=== PATIENT | female | born 1985 | race American Indian/Alaskan Native ===

== ENCOUNTER 2017-04-01 08:26 | Emergency (ER) | payer SELFPAY ==
[2017-04-01] MEDS ORDERED: ZOFRAN ODT ONE (08:58)
[2017-04-01] MEDS ORDERED: ZOFRAN ODT PO ONE (09:06)
[2017-04-01 09:41] LABS: Hematocrit 33.2 % (30.3-42.9); Hemoglobin 10.7 gm/dl (10.1-14.3); Mean Corpuscular HGB Conc 32 % (30-34); Mean Corpuscular Volume 75 fl (79-97); Platelet Count 302 K/mm3 (140-440); Red Blood Count 4.44 M/mm3 (3.65-5.03); White Blood Count 9.1 K/mm3 (4.5-11.0)
[2017-04-01 09:53] LABS: Mean Corpuscular Hemoglobin 24 pg (28-32); Red Cell Distribution Width 20.9 % (13.2-15.2)
[2017-04-01 09:56] LABS: Alanine Aminotransferase 12 units/L (7-56); Albumin 3.8 g/dL (3.9-5); Albumin/Globulin Ratio 1.4 %; Alkaline Phosphatase 56 units/L (35-129); Amylase 105 units/L (27-131); Anion Gap 17 mmol/L; Bilirubin,Total < 0.20 mg/dL (0.1-1.2); Blood Urea Nitrogen 6 mg/dL (7-17); Calcium 9.2 mg/dL (8.4-10.2); Carbon Dioxide 23 mmol/L (22-30); Chloride 101.9 mmol/L (98-107); Creatine Kinase 84 units/L (30-135); Glucose 101 mg/dL (65-100); Lipase 24 units/L (13-60); Potassium 4.5 mmol/L (3.6-5.0); Sodium 137 mmol/L (137-145); Total Protein 6.6 g/dL (6.3-8.2)
[2017-04-01 10:01] LABS: Bilirubin,Direct < 0.2 mg/dL (0-0.2)
--- NOTE | 2017-04-01 11:31 | Ultrasound Report ---
ULTRASOUND OB LESS THAN 14 WEEKS FETUS ULTRASOUND OB TRANSVAGINAL HISTORY: Abdominal and pelvic pain during . Beta hCG level [id number]. FINDINGS: Transabdominal and transvaginal ultrasound imaging was performed. The uterus measures 11.2 x 8.4 x 8.0 cm. An intrauterine gestational sac containing a small pole and yolk sac is identified. Zillah-rump length measures 25 mm which correlates with a 9 week, 2 day . Estimated due date is 11/02/17. Heart rate measured 171 beats per minute. The placenta appears to be forming anteriorly. A small subchorionic hemorrhage is suspected along the anterior border of the gestational sac measuring 1.4 x 0.5 cm. The right ovary measures 3.3 x 2.5 x 4.0 cm. A 1.6 cm complex cyst in the right ovary probably represents a corpus luteum cyst. The left ovary is unremarkable and measures 3.6 x 1.5 x 2.6 cm. IMPRESSION: Viable, single intrauterine as described. Right ovarian cyst. Small subchorionic hemorrhage.
--- NOTE | 2017-04-01 11:31 | Ultrasound Report ---
ULTRASOUND OB LESS THAN 14 WEEKS FETUS ULTRASOUND OB TRANSVAGINAL HISTORY: Abdominal and pelvic pain during . Beta hCG level [id number]. FINDINGS: Transabdominal and transvaginal ultrasound imaging was performed. The uterus measures 11.2 x 8.4 x 8.0 cm. An intrauterine gestational sac containing a small pole and yolk sac is identified. Counce-rump length measures 25 mm which correlates with a 9 week, 2 day . Estimated due date is 11/02/17. Heart rate measured 171 beats per minute. The placenta appears to be forming anteriorly. A small subchorionic hemorrhage is suspected along the anterior border of the gestational sac measuring 1.4 x 0.5 cm. The right ovary measures 3.3 x 2.5 x 4.0 cm. A 1.6 cm complex cyst in the right ovary probably represents a corpus luteum cyst. The left ovary is unremarkable and measures 3.6 x 1.5 x 2.6 cm. IMPRESSION: Viable, single intrauterine as described. Right ovarian cyst. Small subchorionic hemorrhage.
--- NOTE | 2017-04-01 13:03 | Emergency Department Report ---
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 she experienced a brief syncopal episode. denies injury. Reports that her LMP was in Jan. Denies care. reports some abdominal cramping. denies discharge or bleeding. Timing/Prior Episodes: single episode today Precipitating Factors: Positive: none Context: standing Loss of Consciousness: brief (seconds) Current Symptoms: back to normal - Related Data Allergies/Adverse Reactions: Allergies amoxicillin Allergy (Verified 04/01/17 08:49) Rash erythromycin ethylsuccinate [From Pediazole] Allergy (Verified 04/01/17 08:49) Rash sulfisoxazole acetyl [From Pediazole] Allergy (Verified 04/01/17 08:49) Rash Home Medications: Ambulatory Orders No Known Home Medications [No Reported Home Medications] 04/01/17 ED Review of Systems ROS: Stated complaint: PASSED OUT Other details as noted in HPI Other: GENERAL: No weight change, fatigue, weakness, fever, chills, or night sweats SKIN: No changes in skin or hair, no itching, no rashes, no jaundice HEAD: No trauma, headache, or visual changes EYES: No blurriness, tearing, itching, acute visual loss, conjunctival discoloration, or scleral icterus EARS: No hearing loss, tinnitus, vertigo, or earache NOSE: No rhinorrhea, stuffiness, sneezing, itching, or epistaxis MOUTH: No bleeding gums, hoarseness, sore throat, or swelling CARDIAC: No new murmur, chest pain, palpitations, dyspnea on exertion, orthopnea , PND, or edema RESPIRATORY: No shortness of breath, wheeze, cough, sputum production, hemoptysis, pneumonia, asthma, bronchitis, or emphysema GI: abdominal pain/cramping, nausea URINARY: No frequency, urgency, polyuria, dysuria, hematuria, or incontinence MUSCULOSKELETAL: No muscle weakness, joint stiffness, decrease in range of motion, redness, swelling, tenderness NEUROLOGIC: No loss of sensation, numbness, tingling, tremors, weakness, paralysis, seizures HEMATOLOGIC: No anemia, easy bruising, bleeding, petechiae, or purpura ENDOCRINE: No hot or cold intolerance, sweating, polyuria, polydipsia or, polyphagia no thyroid problems PSYCHIATRIC: No change in mood, no anxiety, no depression ED Past Medical Hx - Past Medical History Previous Medical History?: No - Surgical History Past Surgical History?: Yes Hx Appendectomy: Yes Additional Surgical History: tonsillectomy - Social History Smoking Status: Never Smoker Substance Use Type: None - Medications Home Medications: Home Medications Medication Instructions Recorded Confirmed Last Taken Type No Known Home Medications [No 04/01/17 04/01/17 Unknown History Reported Home Medications] ED Physical Exam - General Limitations: No Limitations - Other Other exam information: GENERAL: Patient in no acute distress HEAD: Normocephalic, atraumatic EYES: PERRLA, EOM intact, no scleral icterus, no papilledema, no conjunctival hemorrhage, visual levy and acuity wnl, NOSE: No tenderness, discharge, sinus tenderness MOUTH: No erythema, bleeding, exudate HEART: Regular rate and rhythm, no murmur, S1-S2 are auscultated, pulses are symmetric LUNGS: No wheezing, rales, rhonchi, bilateral breath sounds ABDOMEN: Normal bowel sounds, no tenderness, no rebound, no guarding, no masses , no CVA tenderness MUSCULOSKELETAL: Normal joint range of motion, no redness, no swelling, no tenderness NEUROLOGIC: GCS 15, Alert and Oriented x3, Cranial nerves intact, normal sensation, normal strength, normal gait, no cerebellar deficit PSYCHIATRIC: No homicidal or suicidal ideation, no anxiety, no depression, no hallucinations SKIN: Skin is warm and dry, no wounds, no rashes ED Course Vital Signs 04/01/17 08:49 Temperature 98.6 F Pulse Rate 114 H Respiratory 18 Rate Blood Pressure 147/94 O2 Sat by Pulse 100 Oximetry ED Medical Decision Making - Lab Data Result diagrams: 04/01/17 09:23 04/01/17 09:23 - EKG Data Interpretation: no acute changes - Radiology Data Radiology results: report reviewed - Medical Decision Making Charge nurse Janell reports chemistries normal per lab Na 137, K 4.5, Cl 101.9. Patient comfortable. Updated with results. Plan discharge with outpatient follow-up. Patient agrees with plan and will return if symptoms worsen. Critical care attestation.: If time is entered above; I have spent that time in minutes in the direct care of this critically ill patient, excluding procedure time. ED Disposition Clinical Impression: Abdominal pain affecting Syncope Qualifiers: Syncope type: unspecified Qualified Code(s): R55 - Syncope and collapse Disposition: DISCHARGED TO HOME OR SELFCARE Is pt being admited?: No Condition: Stable Instructions: Threatened Miscarriage (ED), Syncope (ED) Referrals: PRIMARY CARE, [Primary Care Provider] - 3-5 Days Forms: Work/School Release Form(ED) Time of Disposition: 14:00
[2017-04-01 13:41] LABS: Bacteria,Urine 1+ /HPF (Negative); Bilirubin,Urine NEG (Negative); Blood,Urine NEG (Negative); Ketones,Urine NEG (Negative); Mucus,Urine 2+ /HPF; Nitrite,Urine NEG (Negative); Protein,Urine <15 mg/dL mg/dL (Negative); Urobilinogen,Urine < 2.0 mg/dL (<2.0)
[2017-04-01 13:42] LABS: Leukocyte Esterase,Urine TR (Negative)
[2017-04-01 14:19] VITALS: BP 153/78
== END 2017-04-01 14:20 | disposition home or self-care (01) ==
LOC: ED 08:26
DX: O26.891 Other specified pregnancy related conditions, first trimester (principal); R55 Syncope and collapse; R10.9 Unspecified abdominal pain; Z88.1 Allergy status to other antibiotic agents; Z88.2 Allergy status to sulfonamides; Z3A.09 9 weeks gestation of pregnancy
CPT/HCPCS: 36415; 76801; 76817; 80048; 80074; 81001; 81025; 82150; 82550; 83690; 84484; 84702; 85027; 93005; 93010; Q0162

== ENCOUNTER 2017-04-20 11:33 | Emergency (ER) | payer MEDICAID ==
[2017-04-20 11:46] VITALS: BP 120/88
[2017-04-20 12:11] LABS: Hematocrit 32.6 % (30.3-42.9); Hemoglobin 10.5 gm/dl (10.1-14.3); Mean Corpuscular HGB Conc 32 % (30-34); Mean Corpuscular Volume 74 fl (79-97); Platelet Count 299 K/mm3 (140-440); Red Blood Count 4.39 M/mm3 (3.65-5.03); White Blood Count 12.4 K/mm3 (4.5-11.0)
[2017-04-20 12:16] LABS: Mean Corpuscular Hemoglobin 24 pg (28-32); Red Cell Distribution Width 20.3 % (13.2-15.2)
[2017-04-20 12:37] LABS: Anion Gap 19 mmol/L; Blood Urea Nitrogen 7 mg/dL (7-17); Calcium 9.1 mg/dL (8.4-10.2); Carbon Dioxide 21 mmol/L (22-30); Chloride 100.8 mmol/L (98-107); Glucose 153 mg/dL (65-100); Potassium 3.8 mmol/L (3.6-5.0); Sodium 137 mmol/L (137-145)
[2017-04-20 12:55] LABS: Blastocytes % (Manual) 0 %
[2017-04-20 12:56] LABS: Anisocytosis 1+; Basophils % (Manual) 0 % (0.0-1.8); Diff Status Complete; Elliptocytes Few; Eosinophils % (Manual) 0 % (0.0-4.3); Ovalocytes 1+; Polychromasia Rare; Target Cells Rare
== END 2017-04-20 19:30 | disposition left against medical advice (07) ==
LOC: ED 11:33
DX: R10.84 Generalized abdominal pain (principal); R11.10 Vomiting, unspecified; R19.7 Diarrhea, unspecified; Z53.21 Procedure and treatment not carried out due to patient leaving prior to being seen by health care provider
CPT/HCPCS: 36415; 80048; 85007; 85025

== ENCOUNTER 2017-09-11 20:52 | Outpatient (CLI) | payer MEDICAID ==
[2017-09-11 21:09] VITALS: BP 133/88
[2017-09-11] MEDS: LACTATED RINGERS 1,000 ML IV ONE (21:30)
[2017-09-11 21:47] LABS: Bacteria,Urine 2+ /HPF (Negative); Bilirubin,Urine NEG (Negative); Blood,Urine MOD (Negative); Ketones,Urine TR mg/dL (Negative); Leukocyte Esterase,Urine LG (Negative); Mucus,Urine FEW /HPF; Nitrite,Urine NEG (Negative)
[2017-09-11] MEDS: BRETHINE SUB-Q ONE (22:36)
== END 2017-09-11 23:45 | disposition home or self-care (01) ==
LOC: TRG 20:52
PROVIDERS: ATTEND Obstetrics & Gynecology
DX: O47.03 False labor before 37 completed weeks of gestation, third trimester (principal); Z87.891 Personal history of nicotine dependence; Z3A.32 32 weeks gestation of pregnancy
CPT/HCPCS: 81001; 96360; 96372; J3105; J7120

== ENCOUNTER 2017-10-13 03:05 | Inpatient (IN) | payer MEDICAID ==
[2017-10-13] MEDS ORDERED: XYLOCAINE 2% INFILTRATI ONE (03:30)
[2017-10-13] MEDS ORDERED: MINERAL OIL PO PRN (03:30)
[2017-10-13] MEDS ORDERED: BRETHINE IVP PRN (03:30)
[2017-10-13] MEDS ORDERED: SUBLIMAZE IV PRN (03:30)
[2017-10-13] MEDS ORDERED: BRETHINE SUB-Q PRN ×2 (03:30→03:59)
[2017-10-13] MEDS ORDERED: ePHEDrine SULFATE IV PRN ×3 (03:30→04:58)
[2017-10-13] MEDS ORDERED: LACTATED RINGERS 1,000 ML ONE (03:38)
[2017-10-13] MEDS ORDERED: CLEOCIN 900 MG/50 mL 900 MG/50 ML BAG IV ONE (03:40)
[2017-10-13 03:53] LABS: Hematocrit 25.9 % (30.3-42.9); Hemoglobin 8.3 gm/dl (10.1-14.3); Mean Corpuscular HGB Conc 32 % (30-34); Platelet Count 190 K/mm3 (140-440); Red Blood Count 3.75 M/mm3 (3.65-5.03); White Blood Count 9.7 K/mm3 (4.5-11.0)
[2017-10-13] MEDS ORDERED: MAGNESIUM SULFATE 4GM/100ML 4 GM/100 ML BAG IV ONE ×2 (03:54→03:56)
--- NOTE | 2017-10-13 03:54 | History and Physical Report ---
History of Present Illness Date of examination: 10/13/17 Date of admission: 10/13/17 03:18 Chief complaint: laboring History of present illness: EDC Confirmation: 11/02/2017 Past History : 4 Term Births: 3 Premature Births: 0 Living Children: 3 Para: 3 # 1 Delivery date: 1998 Weeks Gestation: term Delivery type: Anesthesia type: epidural Delivery location: [facility] Infant Sex: Male weight: 7-3 Comments: denies # 2 Delivery date: 2005 Weeks Gestation: term Delivery type: Delivery location: [facility] Sex: Female weight: 7-5 Comments: denies # 3 Delivery date: 2015 Weeks Gestation: term Delivery type: Anesthesia type: epidural Delivery location: [facility] Sex: Female weight: 5-9 Comments: denies Past Medical History: Negative Past Medical History Past Surgical History: Appendectomy Tonsillectomy Past Medical History 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 Infection History Hx of STD: none HIV Risk Eval: low risk Hepatitis B Risk Eval: low risk Personal hx. of genital herpes: no Partner hx. of genital herpes: no Rash, Viral, or Febrile illness since last LMP? no Varicella/Chicken Pox Status: Previous Disease TB Risk: no Genetic History Congenital Heart Defect: Mom: no Dad: no Alex Disease: Mom: no Dad: no Thalassemia Mom: no Dad: no Neural Tube Defect Mom: no Dad: no Down's Syndrome Mom: no Dad: yes Comments: sister Karan-Sachs Mom: no Dad: no Sickle Cell Disease/Trait Mom: no Dad: no Hemophilia Mom: no Dad: no Muscular Dystrophy Mom: no Dad: no Cystic Fibrosis Mom: no Dad: no Leodan Chorea Mom: no Dad: no Mental Retardation Mom: no Dad: no Fragile X Mom: no Dad: no Other Genetic/Chromosomal Disorder Mom: no Dad: no Child w/other defect Mom: no Dad: no Enviromental Exposures Xray Exposure: no Medication, drug, or alcohol use since LMP: no Chemical/Other Exposure: no Exposure to Cat Liter: no Hx of Parvovirus (Fifth Disease): no Occupational Exposure to Children: none Active Medications (reviewed today): None Current Allergies (reviewed today): No known allergies Past History Past Medical History: other (see HPI) [employer] History: chlamydia Family/Genetic History: other (see HPI) Social history: smoking - Obstetrical History Expected Date of Delivery: 11/02/17 Actual Gestation: 37 Week(s) 1 Day(s) : 4 Para: 3 Hx # Term Pregnancies: 3 Number of Pregnancies: 0 Spontaneous Abortions: 0 Induced : 0 Number of Living Children: 3 Medications and Allergies Allergies Allergy/AdvReac Type Severity Reaction Status Date / Time amoxicillin Allergy Rash Verified 04/01/17 08:49 erythromycin ethylsuccinate Allergy Rash Verified 04/01/17 08:49 [From Pediazole] sulfisoxazole acetyl Allergy Rash Verified 04/01/17 08:49 [From Pediazole] Home Medications Medication Instructions Recorded Confirmed Last Taken Type No Known Home Medications [No 09/11/17 10/13/17 Unknown History Reported Home Medications] Active Meds: Active Medications Fentanyl (Sublimaze) 100 mcg IV Q2H PRN PRN Reason: Labor Pain Clindamycin HCl (Cleocin 900 Mg/50 Ml) 900 mg in 50 mls @ 100 mls/hr IV Q8HR KYLAH PRN Reason: Protocol Lactated Ringer's (Lactated Ringers) 1,000 mls @ 125 mls/hr IV DIRECT KYLAH Oxytocin/Sodium Chloride (Pitocin/Ns 20 Unit/1000ml Drip) 20 units in 1,000 mls @ 125 mls/hr IV DIRECT KY[facility] Mineral Oil (Mineral Oil) 30 ml PO QHS PRN PRN Reason: Constipation Review of Systems All systems: negative - Vital Signs Vital signs: Vital Signs Pulse Pulse Ox 74 100 10/13/17 03:12 10/13/17 03:12 Temp Pulse Resp BP Pulse Ox 84 164/102 100 10/13/17 03:47 10/13/17 03:19 10/13/17 03:47 - Physical Exam Breasts: Positive: normal Cardiovascular: Regular rate Lungs: Positive: Clear to auscultation, Normal air movement Abdomen: Positive: normal appearance, soft Genitourinary (Female): Positive: normal external genitalia, normal perenium Vulva: both: normal Vagina: Positive: normal moisture Uterus: Positive: normal size, normal contour Anus/Rectum: Positive: normal perianal skin Extremities: Positive: normal Deep Tendon Reflex Grade: Normal but brisk +3 - Obstetrical FHR: category 1 Uterine Contraction Monitor Mode: External Cervical Dilatation: 6 Cervical Effacement Percentage: 100 station: -1 Uterine Contraction Frequency (min): 2-3 Uterine Contraction Duration: 60 Uterine Contraction Pattern: Regular Uterine Tone Measurement Phase: Contraction Uterine Contraction Intensity: Strong/Firm Results Result Diagrams: 10/13/17 03:30 10/13/17 03:31 All other labs normal. Tests: (1) Profile I ([id number]) HBsAg Screen Negative Negative *1 RPR Non Reactive Non Reactive *2 Rubella Antibodies, IgG 3.19 index Immune >0.99 *3 Non-immune <0.90 Equivocal 0.90 - 0.99 Immune >0.99 ABO Grouping O *4 Rh Factor Positive *5 Please note: Prior records for this patient's ABO / Rh type are not available for additional verification. Antibody Screen Negative Negative *6 WBC 9.3 x10E3/uL 3.4-10.8 *7 RBC [L] 3.56 x10E6/uL 3.77-5.28 *8 Hemoglobin [L] 7.7 g/dL 11.1-15.9 *9 Hematocrit [L] 24.3 % 34.0-46.6 *10 MCV [L] 68 fL 79-97 *11 MCH [L] 21.6 pg 26.6-33.0 *12 MCHC 31.7 g/dL 31.5-35.7 *13 RDW [H] 20.5 % 12.3-15.4 *14 Platelets 205 x10E3/uL 150-379 *15 Neutrophils 68 % Not Estab. *16 Lymphs 23 % Not Estab. *17 Monocytes 8 % Not Estab. *18 Eos 0 % Not Estab. *19 Basos 0 % Not Estab. *20 ! Immature Cells <No Reported Value> *21 Neutrophils (Absolute) 6.3 x10E3/uL 1.4-7.0 *22 Lymphs (Absolute) 2.1 x10E3/uL 0.7-3.1 *23 Monocytes(Absolute) 0.7 x10E3/uL 0.1-0.9 *24 Eos (Absolute) 0.0 x10E3/uL 0.0-0.4 *25 Baso (Absolute) 0.0 x10E3/uL 0.0-0.2 *26 ! Immature Granulocytes 1 % Not Estab. *27 ! Immature Grans (Abs) 0.1 x10E3/uL 0.0-0.1 *28 ! NRBC <No Reported Value> *29 Hematology Comments: <No Reported Value> *30 Tests: (2) HB Solu + Rflx Frac ([id number]) Hemoglobin (Hgb) Solubility Negative Negative *31 Tests: (3) HCV Ab w/Rflx to Verification ([id number]) ! HCV Ab <0.1 s/co ratio 0.0-0.9 *32 Tests: (1) Chlamydia/GC Amplification ([id number]) Order Note: Clinical Information: SRC:VR SRC:UR Chlamydia trachomatis, RORY [A] Positive Negative *1 Neisseria gonorrhoeae, RORY Negative Negative *2 Tests: (2) Strep Gp B RORY ([id number]) ! Strep Gp B RORY [A] Positive Negative *3 Assessment and Plan 32 y/o @ 37+1 weeks in active labor, GBS +, hx significant for + AFP ( [facility]. John noted a structurally normal heart.) Patient also + CT and treated last week. Pt reports pre-e with last - b/p significantly elevated (181/117, 193/106) w/ nausea upon arrival although she is in considerable pain. Mag sulfate started while waiting for pre-e lab results. Dr. Putnam aware of admission and pt's status. - Patient Problems (1) 37 weeks gestation of Current Visit: Yes Status: Acute (2) Elevated blood pressure affecting in third trimester, antepartum Current Visit: Yes Status: Acute Plan to address problem: pre-e labs pending, will start mag (3) Active labor at term Current Visit: Yes Status: Acute (4) GBS carrier Current Visit: Yes Status: Acute Plan to address problem: antibiotics until delivery, clindamycin d/t allergies (5) Chlamydia Current Visit: Yes Status: Acute Plan to address problem: patient reports taking azythromycin 10/08/17 with no additional exposure since treatment (6) Anemia Current Visit: Yes Status: Acute Qualifiers: Anemia type: unspecified type Iron deficiency anemia type: I Vitamin B12 deficiency anemia type: V Folate deficiency anemia type: F Bone marrow failure anemia type: B Hemolytic anemia type: H Other causes of anemia: O Chronic kidney disease stage: C Qualified Code(s): D64.9 - Anemia, unspecified (7) Abnormal AFP screen Current Visit: Yes Status: Acute Plan to address problem: HUSSEIN notified, reports from [facility] and [place] printed for review.
[2017-10-13] MEDS ORDERED: MAGNESIUM SULFATE 40GM/1000ML 40 GM/1,000 ML BAG IV ONE (03:56)
[2017-10-13] MEDS ORDERED: APRESOLINE IV PRN ×2 (03:57→14:36)
[2017-10-13 03:58] LABS: Mean Corpuscular Hemoglobin 22 pg (28-32); Mean Corpuscular Volume 69 fl (79-97)
[2017-10-13] MEDS ORDERED: ZOFRAN IV PRN (03:59)
[2017-10-13] MEDS ORDERED: PHENERGAN PO PRN (03:59)
[2017-10-13] MEDS ORDERED: LACTATED RINGERS 1,000 ML IV SCH ×2 (04:00)
[2017-10-13] MEDS ORDERED: PITOCin/NS 20 UNIT/1000ML DRIP 20 UNITS/1,000 ML BAG IV SCH ×3 (04:00→22:00)
[2017-10-13] MEDS: CLEOCIN 900 MG/50 mL 900 MG/50 ML BAG IV SCH ×3 (04:00→20:09)
[2017-10-13] MEDS ORDERED: PITOCin/NS 30 UNIT/500ML 30 UNITS/500 ML BAG IV SCH (04:00)
[2017-10-13] MEDS ORDERED: ZOFRAN ONE (04:01)
[2017-10-13 04:11] LABS: Alanine Aminotransferase 10 units/L (7-56); Lactate Dehydrogenase 157 units/L (91-180); Uric Acid 4.9 mg/dL (3.5-7.6)
[2017-10-13] MEDS: MAGNESIUM SULFATE 40GM/1000ML 40 GM/1,000 ML BAG IV SCH ×2 (04:14→23:37)
[2017-10-13] MEDS ORDERED: ePHEDrine SULFATE ONE (04:27)
[2017-10-13] MEDS ORDERED: NARCAN 2 MG/2 ML IV PRN (04:58)
--- NOTE | 2017-10-13 04:58 | Anesthesia Consultation ---
Anesthesia Consult and Med Hx Date of service: 10/13/17 - Airway ROM Head & Neck: Adequate Mental/Hyoid Distance: Adequate Intubation Access Assessment: Good - Pre-Operative Health Status ASA Pre-Surgery Classification: ASA3, Emergency Proposed Anesthetic Plan: Epidural, Spinal - Pulmonary Hx Asthma: No COPD: No Hx Pneumonia: No - Cardiovascular System Hx Hypertension: Yes (PIH) - Central Nervous System Hx Seizures: No Hx Psychiatric Problems: No - Endocrine Hx Renal Disease: No Hx End Stage Renal Disease: No Hx Hypothyroidism: No Hx Hyperthyroidism: No - Hematic Hx Anemia: Yes Hx Sickle Cell Disease: No - Other Systems Hx Alcohol Use: No
[2017-10-13] MEDS ORDERED: fentaNYL-BUPIV 2 MCG/ML-0.125% 200 MCG/100 ML BAG EPIDURAL SCH (05:00)
[2017-10-13] MEDS ORDERED: CYTOTEC ONE (05:23)
[2017-10-13] MEDS ORDERED: CYTOTEC PR ONE (05:38)
--- NOTE | 2017-10-13 05:51 | Procedure Note ---
OB Delivery Note - Delivery Date of Delivery: 10/13/17 ( Female) Epic Specialist: AMIRA MARADIAGA Estimated blood loss: 300cc - Vaginal Delivery presentation: vertex Delivery position: OA Intrapartum events: preeclampsia Delivery induction: none Delivery augmentation: rupture of membranes Delivery monitor: external FHT, external uterine Route of delivery: Delivery placenta: manual Delivery cord: 3 umbilical vessels Episiotomy: none Delivery laceration: none Anesthesia: epidural Delivery comments: Female infant del over intact perineum, infant placed skin to skin on mother's abdomen. 3 vessel cord clamped and cut, cord blood collected. Baby handed off to NICU/[facility] for assessment d/t suspected ASD by AMFM. cord avulsed with very little traction. Placenta manually removed, trailing membranes noted. Placenta appears to be complete. Bleeding scant, Cytotec given DC as precaution and will continue cleocin x 2 doses. Will also continue magnesium sulfate x 24hrs. Borges replaced. EBL 300. Baby's apgars 8/9, wt 6#10. Mother and remain LDR stable. - A at 1 minute: 8 at 5 minutes: 9 Gender: Female (6#10)
[2017-10-13 06:39] LABS: Bacteria,Urine 1+ /HPF (Negative); Bilirubin,Urine NEG (Negative); Blood,Urine MOD (Negative); Ketones,Urine NEG (Negative); Leukocyte Esterase,Urine NEG (Negative); Mucus,Urine FEW /HPF; Nitrite,Urine NEG (Negative); Protein,Urine <15 mg/dL mg/dL (Negative); Urobilinogen,Urine < 2.0 mg/dL (<2.0)
[2017-10-13] MEDS ORDERED: TUCKS PAD TP PRN (06:49)
[2017-10-13] MEDS ORDERED: MILK OF MAGNESIA PO PRN (06:49)
[2017-10-13] MEDS ORDERED: BENADRYL PO PRN (06:49)
[2017-10-13] MEDS ORDERED: DERMOPLAST TP PRN (06:49)
[2017-10-13] MEDS ORDERED: SODIUM CHLORIDE FLUSH SYRINGE 10 ML IV PRN (06:49)
[2017-10-13] MEDS ORDERED: TYLENOL PO PRN (06:49)
[2017-10-13] MEDS ORDERED: DULCOLAX PR PRN (06:49)
[2017-10-13] MEDS ORDERED: LANSINOH TP PRN (06:49)
[2017-10-13] MEDS ORDERED: NORCO 10/325 ONE (06:55)
[2017-10-13] MEDS: NORCO 5/325 PO PRN ×3 (07:06→21:23)
[2017-10-13] MEDS: FEOSOL PO SCH ×3 (08:54→21:22)
[2017-10-13] MEDS: MOTRIN PO SCH ×3 (08:54→21:24)
[2017-10-13] MEDS: PRENATAL VITAMIN PO SCH (11:43)
[2017-10-13] MEDS: COLACE PO SCH ×2 (11:43→21:33)
[2017-10-13 17:56] LABS: Hematocrit 24.8 % (30.3-42.9); Hemoglobin 7.9 gm/dl (10.1-14.3)
[2017-10-14] MEDS: CLEOCIN 900 MG/50 mL 900 MG/50 ML BAG IV SCH (04:22)
[2017-10-14] MEDS: MOTRIN PO SCH ×4 (05:13→19:00)
--- NOTE | 2017-10-14 06:42 | Progress Note ---
Assessment and Plan - Patient Problems (1) Normal spontaneous vaginal delivery Onset Date: ~10/13/17 Current Visit: Yes Status: Acute Plan to address problem: Pt rest w/o complaint of PERRY, blurred vision, chest pain. MGSO4 d/c after 24 hours BP 130/80 with rare reading of 140/90 afebrile. FF below umb Lochia small perineum intact H&H 06/24 drop r/t blood loss from delivery Pt is w/o s/sx of anemia. Stable s/p vag delivery with elevated BP treated with 24hours of MGSO4 P : continue pathway Close observation of BPs Subjective - Subjective Date of service: 10/14/17 (pt w/o complaint) Principal diagnosis: 10/13/17; PreE Patient reports: appetite normal, voiding normally, pain well controlled, ambulating normally [place]: doing well Objective - Vital Signs Latest vital signs: Vital Signs Temp Pulse Resp BP BP Pulse Ox 10/13/17 22:30 98.3 F 82 20 140/91 10/13/17 21:24 18 10/13/17 21:23 18 10/13/17 20:30 98 F 82 20 138/88 10/13/17 18:00 98.4 F 99 H 20 148/82 10/13/17 16:15 97.9 F 80 20 116/68 10/13/17 15:27 94 H 142/89 99 10/13/17 14:25 98.2 F 109 H 20 162/84 10/13/17 12:00 98 F 70 18 134/87 10/13/17 10:50 98.5 F 94 H 18 132/76 10/13/17 07:40 98.8 F 89 18 143/87 98 10/13/17 07:08 84 128/82 10/13/17 06:53 78 141/85 10/13/17 06:38 82 127/82 Intake and Output 10/13/17 10/13/17 10/14/17 14:59 22:59 06:59 Intake Total 770 240 969.167 Output Total 2600 2200 900 Balance -1829 -1959 69.167 Intake: IV 50 969.167 CLEOCIN 900 MG/50 mL 900 50 mg In 50 ml @ 100 mls/hr IV Q8H [facility] Rx#:[id number] MAGNESIUM SULFATE 40GM/ 969.167 1000ML 40 gm In 1,000 ml @ 2 GM/HR 50 mls/hr IV DIRECT KYLAH Rx#:[id number] Oral 720 240 Output: Urine 2600 2200 900 Indwelling Catheter 2600 1700 Uretheral (Borges) 500 900 Void 0 Other: Total, Intake Amount 120 120 Total, Output Amount 900 800 # Voids Void 0 - Exam Breasts: Present: normal Cardiovascular: Present: Regular rate Lungs: Present: Normal air movement Abdomen: Present: normal appearance, soft Uterus: Present: normal, fundal height below umbilicus Extremities: Present: normal Deep Tendon Reflex Grade: Normal +2 Incision: Present: normal, intact - Labs Labs: Abnormal lab results 10/13/17 10/13/17 10/13/17 Range/Units 13:45 17:25 17:25 Hgb 7.9 L (10.1-14.3) gm/dl Hct 24.8 L (30.3-42.9) % Magnesium 4.50 H 5.30 H (1.7-2.3) mg/dL 10/14/17 10/14/17 Range/Units 00:36 05:27 Hgb (10.1-14.3) gm/dl Hct (30.3-42.9) % Magnesium 5.10 H 5.40 H (1.7-2.3) mg/dL
--- NOTE | 2017-10-14 09:18 | Event Note ---
Date: 10/14/17 (BPs elevated) Consulted with Will start pt on Labetalol 200mg po BID. RN notified.
[2017-10-14] MEDS: NORMODYNE PO SCH ×2 (10:15→21:01)
[2017-10-14] MEDS: FEOSOL PO SCH ×2 (10:15→19:00)
[2017-10-14] MEDS: PRENATAL VITAMIN PO SCH (10:15)
[2017-10-14] MEDS: COLACE PO SCH ×2 (10:15→21:01)
--- NOTE | 2017-10-14 14:59 | Progress Note ---
Subjective Date of service: 10/14/17 Principal diagnosis: 10/13/17; PreE Interval history: 1st day after normal vaginal delivery Patient is in the bed, comfortable. Pain is well controlled with pain meds. Ambulated well. No residual neurological deficit. No anesthesia complications Objective - Constitutional Vitals: Vital Signs - 12hr 10/14/17 10/14/17 10/14/17 04:30 08:12 11:47 Temperature 98.6 F 98.7 F Pulse Rate 74 65 68 Respiratory 20 18 Rate Blood Pressure 141/87 130/82 120/78 [Left] O2 Sat by Pulse 96 Oximetry - Labs CBC & Chem 7: 10/13/17 17:25 10/13/17 03:31 Labs: Abnormal lab results 10/13/17 10/13/17 10/14/17 Range/Units 17:25 17:25 00:36 Hgb 7.9 L (10.1-14.3) gm/dl Hct 24.8 L (30.3-42.9) % Magnesium 5.30 H 5.10 H (1.7-2.3) mg/dL 10/14/17 Range/Units 05:27 Hgb (10.1-14.3) gm/dl Hct (30.3-42.9) % Magnesium 5.40 H (1.7-2.3) mg/dL
[2017-10-14] MEDS: NORCO 5/325 PO PRN (21:01)
[2017-10-15] MEDS: MOTRIN PO SCH (05:36)
[2017-10-15] MEDS ORDERED: BOOSTRIX IM ONE (06:00)
--- NOTE | 2017-10-15 08:23 | Progress Note ---
Assessment and Plan patient w/o complaints, ambulating in room. Lochia scant, anemia - asymptomatic. Afebrile, b/p have responded well to labetalol PO, dee d/c home on labetalol with 1 week f/u in office for b/p check. 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 Current Visit: Yes Status: Acute (2) Anemia Current Visit: Yes Status: Acute Qualifiers: Anemia type: unspecified type Iron deficiency anemia type: I Vitamin B12 deficiency anemia type: V Folate deficiency anemia type: F Bone marrow failure anemia type: B Hemolytic anemia type: H Other causes of anemia: O Chronic kidney disease stage: C Qualified Code(s): D64.9 - Anemia, unspecified (3) Normal spontaneous vaginal delivery Onset Date: ~10/13/17 Current Visit: Yes Status: Acute Subjective - Subjective Date of service: 10/15/17 Principal diagnosis: 10/13/17; PreE Interval history: EDC Confirmation: 11/02/2017 Past History : 4 Term Births: 3 Premature Births: 0 Living Children: 3 Para: 3 # 1 Delivery date: 1997 Weeks Gestation: term Delivery type: Anesthesia type: epidural Delivery location: [facility] Sex: Male weight: 7-3 Comments: denies # 2 Delivery date: 2005 Weeks Gestation: term Delivery type: Delivery location: 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 Infection History Hx of STD: none HIV Risk Eval: low risk Hepatitis B Risk Eval: low risk Personal hx. of genital herpes: no Partner hx. of genital herpes: no Rash, Viral, or Febrile illness since last LMP? no Varicella/Chicken Pox Status: Previous Disease TB Risk: no Genetic History Congenital Heart Defect: Mom: no Dad: no Alex Disease: Mom: no Dad: no Thalassemia Mom: no Dad: no Neural Tube Defect Mom: no Dad: no Down's Syndrome Mom: no Dad: yes Comments: sister Alejandro Mom: no Dad: no Sickle Cell Disease/Trait Mom: no Dad: no Hemophilia Mom: no Dad: no Muscular Dystrophy Mom: no Dad: no Cystic Fibrosis Mom: no Dad: no Leodan Chorea Mom: no Dad: no Mental Retardation Mom: no Dad: no Fragile X Mom: no Dad: no Other Genetic/Chromosomal Disorder Mom: no Dad: no Child w/other defect Mom: no Dad: no Enviromental Exposures Xray Exposure: no Medication, drug, or alcohol use since LMP: no Chemical/Other Exposure: no Exposure to Cat Liter: no Hx of Parvovirus (Fifth Disease): no Occupational Exposure to Children: none Active Medications (reviewed today): None Current Allergies (reviewed today): No known allergies Patient reports: appetite normal, voiding normally, pain well controlled, ambulating normally, no dizzy ambulation, no nauseated [place]: doing well, bottle feeding Objective - Vital Signs Latest vital signs: Vital Signs Temp Pulse Resp BP BP Pulse Ox 10/15/17 05:30 98.6 F 60 18 116/57 10/14/17 21:05 99.1 F 71 18 128/73 10/14/17 21:01 68 119/74 10/14/17 17:05 98.3 F 73 18 130/78 99 10/14/17 11:47 98.7 F 68 18 120/78 10/14/17 10:15 130/82 Intake and Output 10/14/17 10/15/17 10/15/17 23:59 07:59 15:59 Intake Total 840 360 Balance 840 360 Intake: Oral 600 360 Intake, Free Water 240 Other: Total, Intake Amount 360 360 # Voids Void 1 1 - Exam Breasts: Present: normal Cardiovascular: Present: Regular rate Lungs: Present: Clear to auscultation, Normal air movement Abdomen: Present: normal appearance, soft, normal bowel sounds Vulva: both: normal Uterus: Present: normal, firm, fundal height at umbilicus Extremities: Present: normal Deep Tendon Reflex Grade: Normal +2
--- NOTE | 2017-10-15 08:26 | Discharge Summary ---
Providers - Providers Date of Admission: 10/13/17 03:18 Date of discharge: 10/15/17 Attending physician: MARSHA ASHRAF Primary care physician: MARSHA ASHRAF Hospitalization Reason for admission: active labor Delivery: Episiotomy: none Laceration: none Other procedures: none complications: other (pre-e) Discharge diagnosis: IUP at term delivered [place] baby: female Hospital course: vaginal complicated by pre-e Condition at discharge: Good Disposition: DC-01 TO HOME OR SELFCARE - Discharge Diagnoses (1) GBS carrier Status: Acute (2) Anemia Status: Acute Qualifiers: Anemia type: unspecified type Iron deficiency anemia type: I Vitamin B12 deficiency anemia type: V Folate deficiency anemia type: F Bone marrow failure anemia type: B Hemolytic anemia type: H Other causes of anemia: O Chronic kidney disease stage: C Qualified Code(s): D64.9 - Anemia, unspecified (3) Normal spontaneous vaginal delivery Status: Acute (4) Pre-eclampsia Status: Acute Qualifiers: Trimester: third trimester Qualified Code(s): O14.93 - Unspecified pre- eclampsia, third trimester Plan - Discharge Medications Prescriptions: Ferrous Sulfate [Feosol 325 MG tab] 325 mg PO TID #90 tablet Ibuprofen [Motrin 800 MG tab] 800 mg PO Q8HR PRN #30 tablet PRN Reason: Pain Labetalol [Normodyne TAB] 200 mg PO BID #60 tablet Lidocain2.5%/Prilocai2.5% [Emla] 5 gm TP ONCE PRN #1 tube PRN Reason: Pain - Provider Discharge Summary Activity: routine, no sex for 6 weeks, no heavy lifting 4 weeks, no strenuous exercise Diet: routine Instructions: routine Additional instructions: [] Smoking cessation referral if applicable(refer to patient education folder for contact #) [] Refer to [facility]'s [facility] Booklet Call your doctor immediately for: * Fever > 100.5 * Heavy vaginal bleeding ( >1 pad per hour) * Severe persistent headache * Shortness of breath * Reddened, hot, painful area to leg or breast * Drainage or odor from incision. * Keep incision clean and dry at all times and follow doctor's instructions regarding bathing/showering - Follow up plan Follow up: MARSHA ASHRAF MD [Primary Care Provider] - 7 Days (Congratulations! Please call [phone] to schedule your blood pressure check in 1 week and visit in 4 weeks. Call for any questions or concerns. Call for any complaints of headache, visual changes or chest pain.)
[2017-10-15] MEDS: FEOSOL PO SCH (08:44)
[2017-10-15] MEDS: PRENATAL VITAMIN PO SCH (08:45)
[2017-10-15] MEDS: COLACE PO SCH (08:45)
[2017-10-15] MEDS: NORMODYNE PO SCH (08:45)
[2017-10-15 18:18] VITALS: BP 134/96
== END 2017-10-15 15:45 | disposition home or self-care (01) | DRG 774 ==
LOC: TRG 03:05 → LD 03:18 → OB 08:04
PROVIDERS: ADMIT Obstetrics & Gynecology; ATTEND Obstetrics & Gynecology
PROC: 10E0XZZ Delivery of Products of Conception, External Approach (ICD-10-PCS; principal; 2017-10-13)
PROC: 3E0R3BZ Introduction of Anesthetic Agent into Spinal Canal, Percutaneous Approach (ICD-10-PCS; 2017-10-13)
PROC: 00HU33Z Insertion of Infusion Device into Spinal Canal, Percutaneous Approach (ICD-10-PCS; 2017-10-13)
DX: O14.93 Unspecified pre-eclampsia, third trimester (principal); O99.824 Streptococcus B carrier state complicating childbirth; Z3A.37 37 weeks gestation of pregnancy; Z37.0 Single live birth; Z88.8 Allergy status to other drugs, medicaments and biological substances; O99.02 Anemia complicating childbirth; D64.9 Anemia, unspecified; O16.4 Unspecified maternal hypertension, complicating childbirth; O98.82 Other maternal infectious and parasitic diseases complicating childbirth
CPT/HCPCS: 36415; 81001; 82565; 83615; 83735; 84450; 84460; 84550; 85014; 85018; 85027; 86592; 86850; 86900; 86901; 88307; 90471; 90715; J0360; J2405; J2590; J3010; J3475; J7120

== ENCOUNTER 2017-12-06 06:25 | Day surgery (SDC) | payer MEDICAID ==
--- NOTE | 2017-12-05 17:30 | History and Physical Report ---
History of Present Illness Date of examination: 12/04/17 History of present illness: Patient has been reassessed/reevaluated/re-examined. H&P has been reviewed. No interval changes. This patient desires to discuss control methods and possibly start, continue, or change control. Patient desires sterilization.Discuss the permanency of sterilization. High risk of regret and 0.5 to 1% risk of failure. Discussed the different risk of abdominal versus vaginal approaches Patient desires laparoscopic tubal ligation . Vital Signs: Patient Profile: 32 Years Old Female LMP: 11/30/2017 Height: 64 inches (162.56 cm) Weight: 130 pounds (59.09 kg) BMI: 22.31 BSA: 1.63 Vitals Entered By: Monique Vaughn (December 04, 2017 9:08 AM) Menstrual History: LMP (date): 11/30/2017 Current Method of Contraception: None Past History : 4 Term Births: 4 Premature Births: 0 Living Children: 4 Para: 4 Mult. Births: 0 Prev : 0 Prev. attempt? 0 Aborta: 0 Elect. Ab: 0 Spont. Ab: 0 Ectopics: 0 # 1 Delivery date: 1997 Weeks Gestation: term Delivery type: Anesthesia type: epidural Delivery location: [facility] Sex: Male weight: 7-3 Comments: denies # 2 Delivery date: 2005 Weeks Gestation: term Delivery type: Delivery location: [facility] Sex: Female weight: 7-5 Comments: denies # 3 Delivery date: 2015 Weeks Gestation: term Delivery type: Anesthesia type: epidural Delivery location: [facility] Sex: Female weight: 5-9 Comments: denies # 4 Delivery date: 10/13/2017 Weeks Gestation: 37+1 Delivery type: Vaginal Anesthesia type: epidural Delivery location: [facility] Infant Sex: female weight: 6.63 Comments: pre-eclampsia/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 of genital herpes: no Partner hx. of genital herpes: no Hx of STD: none Current Allergies (reviewed today): No known allergies Past Medical History: Negative Past Medical History Past Surgical History: Appendectomy Tonsillectomy Social History: Patient is single Smoking History: Patient is a former smoker. Risk Factors: Smoked Tobacco Use: Former smoker Smokeless Tobacco Use: Never Passive smoke exposure: no Drug use: no HIV high-risk behavior: no Alcohol use: no Exercise: no Seatbelt use: 100 % Review of Systems General Denies fever, chills, sweats, anorexia, fatigue, weakness, malaise, weight loss and sleep disorder. Denies vaginal discharge, incontinence, dysuria, hematuria, urinary frequency, amenorrhea, menorrhagia, abnormal vaginal bleeding, pelvic pain, genital sores, decreased libido, painful periods, painful sex, urinary urgency, hot flashes, vaginal dryness, vaginal itching and vaginal odor. CV Denies chest pains, palpitations, syncope, dyspnea on exertion, orthopnea, PND and peripheral edema. Resp Denies cough, dyspnea at rest, excessive sputum, hemoptysis, wheezing and pleurisy. GI Denies nausea, vomiting, diarrhea, constipation, change in bowel habits, abdominal pain, melena, hematochezia, jaundice, gas/bloating, indigestion/ heartburn, dysphagia and odynophagia. Breast Denies left breast lump, right breast lump, nipple discharge, bloody discharge from nipple, breast pain, abnormal mammogram and breast enlargement. Psych Denies depression, anxiety, irritability and mood swings. Past History Past Medical History: other (See HPI) Past Surgical History: appendectomy, Other (See HPI) Social history: other (See HPI) Family history: other (See HPI) Medications and Allergies Allergies Allergy/AdvReac Type Severity Reaction Status Date / Time amoxicillin Allergy Rash Verified 11/28/17 18:44 Home Medications Medication Instructions Recorded Confirmed Last Taken Type Ferrous Sulfate [Feosol 325 MG tab] 325 mg PO BID 12/06/17 12/06/17 12/05/17 History Review of Systems Constitutional: other (See HPI) Exam - Physical Exam Narrative exam: HEENT: normocephalic, no lesions or deformities Skin no abnormal lesions or rashes Chest: respiratory effort normal, clear to auscultation Breasts: skin/areolae normal, no masses, no nipple discharge, no erythema/warmth /tenderness, and axillae normal. 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 Cervix: normal appearance, no lesions. Uterus: enlarged uterus 8 - 10 weeks size Adnexae: no masses or tenderness Rectovaginal: exam defered Results - Labs CBC & Chem 7: 12/06/17 07:30 Assessment and Plan - Patient Problems (1) Encounter for sterilization Current Visit: Yes Status: Acute Plan to address problem: Discuss the risks of the surgery including infection, bleeding possibly heavy enough to require a blood transfusion, possible damage to adjacent organs. Discuss permanent nature of the procedure and the 1% failure rate. Discuss of possibility of laparotomy needed Patient understands and desires to proceed.
[2017-12-06] MEDS ORDERED: NACL BACTERIOSTATIC INFILTRATI ONE (07:23)
[2017-12-06] MEDS ORDERED: DIPRIVAN 10 MG/ML IV ONE (07:35)
[2017-12-06] MEDS ORDERED: DILAUDID ONE (07:35)
[2017-12-06] MEDS ORDERED: ZOFRAN ONE (07:37)
[2017-12-06] MEDS ORDERED: DECADRON ONE (07:37)
[2017-12-06] MEDS ORDERED: ROBINUL ONE ×2 (07:37)
[2017-12-06] MEDS ORDERED: NEOSTIGMINE ONE (07:37)
[2017-12-06] MEDS ORDERED: ZEMURON IV ONE (07:37)
[2017-12-06] MEDS ORDERED: MARCAINE 0.5% 30 ML INFILTRATI ONE (07:41)
[2017-12-06 07:44] LABS: Basophils % (Auto) 0.8 % (0.0-1.8); Eosinophils # (Auto) 0.1 K/mm3 (0.0-0.4); Eosinophils % (Auto) 1.4 % (0.0-4.3); Hematocrit 28.1 % (30.3-42.9); Lymphocytes # (Auto) 2.2 K/mm3 (1.2-5.4); Lymphocytes % (Auto) 36.1 % (13.4-35.0); Mean Corpuscular HGB Conc 32 % (30-34); Mean Corpuscular Hemoglobin 23 pg (28-32); Mean Corpuscular Volume 70 fl (79-97); Monocytes # (Auto) 0.5 K/mm3 (0.0-0.8); Monocytes % (Auto) 8.8 % (0.0-7.3); Platelet Count 282 K/mm3 (140-440); Red Blood Count 3.99 M/mm3 (3.65-5.03); Red Cell Distribution Width 23.7 % (13.2-15.2)
--- NOTE | 2017-12-06 07:57 | Anesthesia Consultation ---
Anesthesia Consult and Med Hx Date of service: 12/06/17 - Airway Anesthetic Teeth Evaluation: Chipped (#9 has crack (top front) ) ROM Head & Neck: Adequate Mental/Hyoid Distance: Adequate Mallampati Class: Class II Intubation Access Assessment: Probably Good - Pulmonary Exam CTA: Yes - Cardiac Exam Cardiac Exam: RRR - Pre-Operative Health Status ASA Pre-Surgery Classification: ASA2 Proposed Anesthetic Plan: General (7 weeks post-) - Pulmonary Hx Smoking: Yes (former) Hx Asthma: No COPD: No Hx Pneumonia: No - Cardiovascular System Hx Hypertension: Yes (PIH) - Central Nervous System Hx Seizures: No Hx Psychiatric Problems: No - Endocrine Hx Renal Disease: No Hx End Stage Renal Disease: No Hx Hypothyroidism: No Hx Hyperthyroidism: No - Hematic Hx Anemia: Yes Hx Sickle Cell Disease: No - Other Systems Hx Alcohol Use: No Hx Cancer: No
--- NOTE | 2017-12-06 07:57 | Anesthesia Day of Surgery ---
Anesthesia Day of Surgery - Day of Surgery Patient Examined: Yes Patient H&P Reviewed: Yes Patient is NPO: Yes
[2017-12-06] MEDS ORDERED: PEPCID IV NR (08:00)
[2017-12-06] MEDS ORDERED: LACTATED RINGERS 1,000 ML IV SCH (08:00)
[2017-12-06] MEDS ORDERED: VERSED IV NR (08:00)
[2017-12-06] MEDS ORDERED: TORADOL ONE (09:01)
[2017-12-06] MEDS ORDERED: LACTATED RINGERS 1,000 ML ONE (09:05)
[2017-12-06] MEDS ORDERED: MARCAINE 0.5% INFILTRATI ONE (09:09)
[2017-12-06] MEDS ORDERED: MORPHINE ONE (09:28)
[2017-12-06] MEDS: MORPHINE IV PRN ×4 (09:29→10:00)
--- NOTE | 2017-12-06 09:29 | Operative Report ---
Operative Report Operative Report: Pre-operative diagnosis: Patient desires permanent sterilization Post-operative diagnosis: Same Procedure name(s): Laparoscopic bilateral tubal ligation with Falope-Rings Surgeon: Esteban Glynn MD Bronze Chaser: [] Anesthesia: General endotracheal EBL: Minimal Complications: None Findings: Patient with uterus approximately 8-10 weeks in size with normal fallopian tubes bilaterally Specimen(s): None Patient was brought in the operating room. General anesthesia was induced without difficulty. She was placed in dorsal lithotomy position. Prepped and draped in usual sterile manner. Her urinary bladder with was emptied with a red rubber catheter. Speculum placed in her vagina and Sargis uterine manipulator was placed for uterine manipulation. Attention was then switched to the patient's abdomen. An infra-umbilical incision was made with a scalpel. This incision was spread with a hemostat. A 5 mm trocar was placed in this incision while lifting high the abdominal wall. Intra-abdominal presence was verified directly with the laparoscope. The patient was then insufflated to approximately 3 L of CO2 gas. The patient's findings as noted above. An accessory puncture was made suprapubically. The 8 mm trocar was placed through this incision under direct visualization with no evidence of internal organ damage. Each of the fallopian tube were identified by its fimbriated end. A portion approximately 1-2 cm from each cornua was grasped with the Falope ring applicator. Falope-Rings were placed without any difficulty bilaterally. At this time all instruments were removed. The patient was deinsufflated. The skin incisions were closed subcuticular with 4-0 Vicryl. Marcaine was given subcuticularly for postoperative pain relief. The patient tolerated procedure well. She was awakened in the operating room and accompanied to the recovery room in good condition.
[2017-12-06] MEDS: APRESOLINE IV PRN ×2 (09:31→10:00)
--- NOTE | 2017-12-06 09:32 | Short Stay Summary ---
Short Stay Documentation Date of service: 12/06/17 - History H&P: dictated Past Medical History: other (See HPI) Past Surgical History: appendectomy, Other (See HPI) Social history: other (See HPI) - Allergies and Medications Current Medications: Allergies amoxicillin Allergy (Verified 11/28/17 18:44) Rash Home Medications Medication Instructions Recorded Confirmed Last Taken Type Ferrous Sulfate [Feosol 325 MG tab] 325 mg PO BID 12/06/17 12/06/17 12/05/17 History Ibuprofen [Motrin 800 MG tab] 800 mg PO Q6H PRN #30 tablet 12/06/17 Unknown Rx oxyCODONE /ACETAMINOPHEN [Percocet 1 - 2 tab PO Q4H PRN #30 tablet 12/06/17 Unknown Rx 5/325 mg] Active Medications Famotidine (Pepcid) 20 mg IV PREOP NR Stop: 12/06/17 23:59 Last Admin: 12/06/17 08:21 Dose: 20 mg Lactated Ringer's (Lactated Ringers) 1,000 mls @ 125 mls/hr IV DIRECT KYLAH Last Admin: 12/06/17 08:19 Dose: 125 mls/hr Midazolam HCl (Versed) 2 mg IV PREOP NR Stop: 12/06/17 23:59 Last Admin: 12/06/17 08:21 Dose: 2 mg - Brief post op/procedure progress note Date of procedure: 12/06/17 (see dictated operative note) - Hospital course Hospital course: Patient was admitted underwent the above him procedure without any complications. Patient will be discharged with follow-up in office in 1-2 weeks for postop check. - Disposition Condition at discharge: Good Disposition: DC-01 TO HOME OR SELFCARE - Discharge Diagnoses (1) Encounter for sterilization Status: Acute Short Stay Discharge Plan Activity: advance as tolerated Diet: regular Additional Instructions: Patient office for fever chills nausea vomiting or pain uncontrolled by pain relief. Follow up with: MARSHA ASHRAF MD [Primary Care Provider] - 7 Days Prescriptions: Ibuprofen [Motrin 800 MG tab] 800 mg PO Q6H PRN #30 tablet PRN Reason: Pain oxyCODONE /ACETAMINOPHEN [Percocet 5/325 mg] 1 - 2 tab PO Q4H PRN #30 tablet PRN Reason: Pain, Moderate
[2017-12-06] MEDS ORDERED: APRESOLINE ONE (09:34)
[2017-12-06] MEDS ORDERED: PERCOCET 5/325 PO PRN (10:10)
[2017-12-06 10:47] VITALS: BP 153/90
== END 2017-12-06 06:26 | disposition home or self-care (01) ==
LOC: OR 06:25
PROVIDERS: ATTEND Obstetrics & Gynecology
DX: Z30.2 Encounter for sterilization (principal); I10 Essential (primary) hypertension; Z87.891 Personal history of nicotine dependence; Z98.890 Other specified postprocedural states; Z79.899 Other long term (current) drug therapy; Z88.1 Allergy status to other antibiotic agents
CPT/HCPCS: 36415; 58671; 81025; 85025; J0360; J1100; J1170; J1885; J2250; J2270; J2405; J2704; J2710; J7120

== ENCOUNTER 2019-08-02 09:46 | Emergency (ER) | payer MEDICAID ==
[2019-08-02 10:06] VITALS: BP 156/98
== END 2019-08-02 11:30 | disposition left against medical advice (07) ==
LOC: ED 09:46
DX: M79.10 Myalgia, unspecified site (principal); Z53.21 Procedure and treatment not carried out due to patient leaving prior to being seen by health care provider